=== PATIENT | male | born 1995 | race Caucasian/White ===

== ENCOUNTER 2017-04-07 15:09 | Outpatient (CLI) | payer OTHER ==
--- NOTE | 2017-04-08 15:24 | DIAGNOSTIC IMAGING REPORT ---
PROCEDURE: MR UPPER EXTREMITY W/O CONT-LT; FAILED EXAM INDICATION: Left shoulder pain. FINDINGS: The patient was placed on the scanning table, was subsequently declined of the procedure due to claustrophobia. IMPRESSION: 1. Failed examination (MRI left shoulder). 2. Repeat attempt with oral medication at "open" MRI at [facility] may be of assistance. 3. Findings discussed with Dr. Vang.
--- NOTE | 2017-04-08 15:24 | DIAGNOSTIC IMAGING REPORT ---
PROCEDURE: MR UPPER EXTREMITY W/O CONT-LT; FAILED EXAM INDICATION: Left shoulder pain. FINDINGS: The patient was placed on the scanning table, was subsequently declined of the procedure due to claustrophobia. IMPRESSION: 1. Failed examination (MRI left shoulder). 2. Repeat attempt with oral medication at "open" MRI at [facility] may be of assistance. 3. Findings discussed with Dr. Vang.
== END 2017-04-07 23:00 ==
LOC: MRI SRH 15:09
DX: M75.100 Unspecified rotator cuff tear or rupture of unspecified shoulder, not specified as traumatic (principal); Z53.8 Procedure and treatment not carried out for other reasons